=== PATIENT | female | born 1975 ===

== ENCOUNTER 2020-12-14 09:04 | Outpatient (REF) | payer OTHER, SELFPAY ==
[2020-12-14 12:33] LABS: SARS COV2 IgG Negative (Negative)
[2020-12-14 14:19] LABS: Alanine Aminotransferase 13 U/L (0-31); Anion Gap 14 (12-20); Aspartate Amino Transferase 15 U/L (5-31); Blood Urea Nitrogen 18 mg/dL (9-16); Calcium 9.4 mg/dL (8.4-10.2); Carbon Dioxide 24 mmol/L (22-29); Chloride 105 mmol/L (96-108); Cholesterol 234 mg/dL; Estimated Glomerular Filt Rate > 60; Glucose Fasting 95 mg/dL (60-99); HDL Cholesterol 84 mg/dL; LDL Cholesterol Calculated 119 mg/dl; Potassium 4.1 mmol/L (3.3-5.1); Sodium 139 mmol/L (135-145); Triglycerides 156 mg/dL
[2020-12-14 14:45] LABS: Free T4 (Free Thyroxine) 0.95 ng/dL (0.71-1.85); Thyroid Stimulating Hormone 4.88 uIU/mL (0.32-4.0)
== END 2020-12-14 09:05 | disposition home or self-care (01) ==
LOC: HO.HMGCLDS 09:04
PROVIDERS: PCP Internal Medicine; Visit Provider Internal Medicine
DX: Z20.822 Contact with and (suspected) exposure to COVID-19 (principal); E89.0 Postprocedural hypothyroidism; I10 Essential (primary) hypertension
CPT/HCPCS: 36415; 80048; 80061; 84439; 84443; 84450; 84460; 86769

== ENCOUNTER 2021-10-19 11:06 | Outpatient (REF) | payer OTHER, SELFPAY ==
[2021-10-19 13:45] LABS: MANUAL DIFF FLAG NO
[2021-10-19 13:53] LABS: Basophils Absolute Auto 0.1 X10*3/uL (0.0-0.2); Basophils Percent Auto 0.9 % (0-2); Eosinophils Absolute Auto 0.2 X10*3/uL (0.0-0.4); Eosinophils Percent Auto 3.5 % (0-4); Hematocrit 38.6 % (37.0-47.0); Hemoglobin 12.4 g/dl (12.0-16.0); Imm Gran Abs Auto 0.01 X10*3/uL (0.00-0.03); Imm Gran Pct Auto 0.2 % (0.0-0.4); Lymphocytes Absolute Auto 1.6 X10*3/uL (1.2-4.9); Lymphocytes Percent Auto 30.6 % (20-40); Mean Corpuscular HGB Conc 32.1 g/dl (31.0-35.0); Mean Corpuscular Hemoglobin 28.8 pg (27.0-33.0); Mean Corpuscular Volume 89.8 fL (80.0-98.0); Mean Platelet Volume 10.1 fL (9.4-12.3); Monocytes Absolute Auto 0.5 X10*3/uL (0.1-1.2); Monocytes Percent Auto 8.8 % (2-11); Platelet Count 342 X10*3/uL (160-400); White Blood Count 5.4 X10*3/uL (4.8-10.8)
[2021-10-19 16:00] LABS: Anion Gap 10 (12-20); Blood Urea Nitrogen 14 mg/dL (9-16); Calcium 9.1 mg/dL (8.4-10.2); Carbon Dioxide 26 mmol/L (22-29); Chloride 108 mmol/L (96-108); Estimated Glomerular Filt Rate > 60; Glucose Random 101 mg/dL (60-115); Potassium 4.2 mmol/L (3.3-5.1); Sodium 140 mmol/L (135-145)
== END 2021-10-19 11:07 | disposition home or self-care (01) ==
LOC: HO.HMGCLDS 11:06
PROVIDERS: Internal Medicine; Visit Provider Internal Medicine
DX: R19.7 Diarrhea, unspecified (principal); E89.0 Postprocedural hypothyroidism
CPT/HCPCS: 36415; 80048; 84443; 85025

== ENCOUNTER 2021-10-25 10:02 | Outpatient (REF) | payer OTHER, SELFPAY ==
[2021-10-25 14:39] LABS: Adenovirus F 40/41 Not Detected (Not Detect.); Astrovirus Not Detected (Not Detect.); Campylobacter Not Detected (Not Detect.); Cyclospora cayetanensis Not Detected (Not Detect.); E. coli EAEC Not Detected (Not Detect.); E. coli EPEC Not Detected (Not Detect.); E. coli ETEC Not Detected (Not Detect.); E. coli STEC Not Detected (Not Detect.); Entamoeba histolytica Not Detected (Not Detect.); Giardia lamblia Not Detected (Not Detect.); Norovirus GI/GII Not Detected (Not Detect.); Plesiomonas shigelloides Not Detected (Not Detect.); Rotavirus A Not Detected (Not Detect.); Salmonella Not Detected (Not Detect.); Sapovirus Not Detected (Not Detect.); Shigella sp./EIEC Not Detected (Not Detect.); Vibrio Not Detected (Not Detect.); Vibrio Cholerae Not Detected (Not Detect.); Yersinia enterocolitica Not Detected (Not Detect.)
[2021-10-25 16:00] LABS: Cryptosporidium Detected (Not Detect.)
== END 2021-10-25 10:03 | disposition home or self-care (01) ==
LOC: HO.HMGCLDS 10:02
PROVIDERS: PCP Internal Medicine; Visit Provider Internal Medicine
DX: R19.7 Diarrhea, unspecified (principal)
CPT/HCPCS: 36415; 87507

== ENCOUNTER 2021-11-05 11:29 | Outpatient (REF) | payer OTHER, SELFPAY ==
[2021-11-05 16:54] LABS: Adenovirus F 40/41 Not Detected (Not Detect.); Astrovirus Not Detected (Not Detect.); Campylobacter Not Detected (Not Detect.); Cryptosporidium Not Detected (Not Detect.); Cyclospora cayetanensis Not Detected (Not Detect.); E. coli EAEC Not Detected (Not Detect.); E. coli EPEC Detected (Not Detect.); E. coli ETEC Not Detected (Not Detect.); E. coli STEC Not Detected (Not Detect.); Entamoeba histolytica Not Detected (Not Detect.); Giardia lamblia Not Detected (Not Detect.); Norovirus GI/GII Not Detected (Not Detect.); Plesiomonas shigelloides Not Detected (Not Detect.); Rotavirus A Not Detected (Not Detect.); Shigella sp./EIEC Not Detected (Not Detect.); Vibrio Not Detected (Not Detect.); Vibrio Cholerae Not Detected (Not Detect.); Yersinia enterocolitica Not Detected (Not Detect.)
[2021-11-06 11:35] LABS: Sapovirus Not Detected (Not Detect.)
[2021-11-06 11:40] LABS: Salmonella Detected (Not Detect.)
== END 2021-11-05 11:30 | disposition home or self-care (01) ==
LOC: HO.HMGCLNP 11:29
PROVIDERS: PCP Internal Medicine; Visit Provider Internal Medicine
DX: R19.7 Diarrhea, unspecified (principal)
CPT/HCPCS: 87507

== ENCOUNTER 2021-11-12 11:35 | Outpatient (REF) | payer OTHER, SELFPAY ==
[2021-11-12 15:39] LABS: Adenovirus F 40/41 Not Detected (Not Detect.); Astrovirus Not Detected (Not Detect.); Campylobacter Not Detected (Not Detect.); Cryptosporidium Not Detected (Not Detect.); Cyclospora cayetanensis Not Detected (Not Detect.); E. coli EAEC Detected (Not Detect.); E. coli EPEC Detected (Not Detect.); E. coli ETEC Not Detected (Not Detect.); E. coli STEC Not Detected (Not Detect.); Entamoeba histolytica Not Detected (Not Detect.); Giardia lamblia Not Detected (Not Detect.); Plesiomonas shigelloides Not Detected (Not Detect.); Shigella sp./EIEC Not Detected (Not Detect.); Vibrio Not Detected (Not Detect.); Vibrio Cholerae Not Detected (Not Detect.); Yersinia enterocolitica Not Detected (Not Detect.)
[2021-11-12 15:40] LABS: Norovirus GI/GII Not Detected (Not Detect.); Rotavirus A Not Detected (Not Detect.); Sapovirus Not Detected (Not Detect.)
[2021-11-12 15:45] LABS: Salmonella Detected (Not Detect.)
== END 2021-11-12 11:36 | disposition home or self-care (01) ==
LOC: HO.LNP 11:35
PROVIDERS: Visit Provider Internal Medicine
DX: A49.8 Other bacterial infections of unspecified site (principal)
CPT/HCPCS: 87507

== ENCOUNTER 2021-11-19 14:04 | Outpatient (REF) | payer OTHER, SELFPAY ==
[2021-11-22 09:58] LABS: Campylobacter Not Detected (Not Detect.); Plesiomonas shigelloides Not Detected (Not Detect.)
[2021-11-22 09:59] LABS: Adenovirus F 40/41 Not Detected (Not Detect.); Astrovirus Not Detected (Not Detect.); Cryptosporidium Not Detected (Not Detect.); Cyclospora cayetanensis Not Detected (Not Detect.); E. coli EAEC Detected (Not Detect.); E. coli EPEC Not Detected (Not Detect.); E. coli ETEC Not Detected (Not Detect.); E. coli STEC Not Detected (Not Detect.); Entamoeba histolytica Not Detected (Not Detect.); Giardia lamblia Not Detected (Not Detect.); Norovirus GI/GII Not Detected (Not Detect.); Rotavirus A Not Detected (Not Detect.); Sapovirus Not Detected (Not Detect.); Shigella sp./EIEC Not Detected (Not Detect.); Vibrio Not Detected (Not Detect.); Vibrio Cholerae Not Detected (Not Detect.); Yersinia enterocolitica Not Detected (Not Detect.)
[2021-11-22 12:02] LABS: Salmonella Detected (Not Detect.)
== END 2021-11-19 14:05 | disposition home or self-care (01) ==
LOC: HO.HMGCLDS 14:04
PROVIDERS: PCP Internal Medicine; Visit Provider Internal Medicine
DX: Z87.19 Personal history of other diseases of the digestive system (principal)
CPT/HCPCS: 36415; 87507

== ENCOUNTER 2022-04-26 15:15 | Outpatient (REF) | payer OTHER, SELFPAY ==
--- NOTE | ~2022-04-26 | MM_ITS ---
EXAMINATION: MM SCREENING DIGITAL BREAST TOMOSYNTHESIS, BILATERAL CLINICAL INFORMATION: Screening. Asymptomatic. The lifetime risk of breast cancer based on the Tyrer-Cuzick Model is 14%. COMPARISON: Outside mammography 06/03/2019 (baseline, [facility]). TECHNIQUE: Digital breast tomosynthesis is performed in both the craniocaudal and mediolateral oblique views along with computer-aided detection (CAD). Synthesized 2D images are generated from the tomosynthesis. FINDINGS: The breasts are heterogeneously dense, which may obscure small masses (ACR BI-RADS breast composition Category c). Parenchymal pattern is similar to prior outside exam. There is no significant mass or interval architectural abnormality or abnormal calcifications. The small smooth nodule lower left breast similar to prior MLO view. No developing density. Bilateral axilla and skin contours are unremarkable. MM/MM tomosynthesis screening BI IMPRESSION: No mammographic evidence of malignancy. ASSESSMENT: BI-RADS 2: Benign RECOMMENDATION: Routine annual mammography screening. This patient's information was entered into a reminder system with a target due date for their next mammogram.
== END 2022-04-26 15:16 | disposition home or self-care (01) ==
LOC: HO.MAMMO 15:15
PROVIDERS: PCP Internal Medicine; Visit Provider Internal Medicine
DX: Z12.31 Encounter for screening mammogram for malignant neoplasm of breast (principal)
CPT/HCPCS: 77063; 77067

== ENCOUNTER 2022-05-05 09:26 | Outpatient (REF) | payer OTHER, SELFPAY ==
[2022-05-05 12:26] LABS: Alanine Aminotransferase 16 U/L (0-31); Albumin Level 4.5 g/dL (3.5-5.0); Alkaline Phosphatase 61 U/L (39-117); Anion Gap 13 (12-20); Aspartate Amino Transferase 15 U/L (5-31); Bilirubin Total 0.6 mg/dL (0.0-1.0); Blood Urea Nitrogen 19 mg/dL (9-16); Calcium 9.2 mg/dL (8.4-10.2); Carbon Dioxide 26 mmol/L (22-29); Chloride 107 mmol/L (96-108); Cholesterol 231 mg/dL; Estimated Glomerular Filt Rate > 60; Glucose Fasting 107 mg/dL (60-99); HDL Cholesterol 81 mg/dL; LDL Cholesterol Calculated 138 mg/dl; Sodium 142 mmol/L (135-145); Total Protein 7.5 g/dL (6.5-8.0); Triglycerides 63 mg/dL
[2022-05-05 12:29] LABS: Free T4 (Free Thyroxine) 0.99 ng/dL (0.71-1.85); Thyroid Stimulating Hormone 2.42 uIU/mL (0.32-4.0); Vitamin D 25-OH Total 20.4 ng/mL (>30)
[2022-05-10 07:33] LABS: Antibody to SS-A Antigen <1.0 NEG AI (<1.0 NEG); Antibody to SS-B Antigen <1.0 NEG AI (<1.0 NEG)
== END 2022-05-05 09:27 | disposition home or self-care (01) ==
LOC: HO.HMGCLDS 09:26
PROVIDERS: PCP Internal Medicine; Visit Provider Internal Medicine
DX: Z00.01 Encounter for general adult medical examination with abnormal findings (principal); E89.0 Postprocedural hypothyroidism; F41.8 Other specified anxiety disorders; R68.2 Dry mouth, unspecified; I10 Essential (primary) hypertension
CPT/HCPCS: 36415; 80053; 80061; 82306; 84439; 84443; 86235

== ENCOUNTER 2022-11-17 14:01 | Outpatient (REF) | payer OTHER, SELFPAY ==
[2022-11-18 05:36] LABS: CT PCR NOT DETECTED (Not Detect.); NG PCR NOT DETECTED (Not Detect.)
[2022-11-18 15:43] LABS: BV Int Neg Control Negative (Negative); BV Int Pos Control Positive (Positive)
[2022-11-22 23:08] LABS: HPV mRNA E6/E7 rflx Not Detected (Not Detected)
== END 2022-11-17 14:02 | disposition home or self-care (01) ==
LOC: HO.LNP 14:01
PROVIDERS: PCP Internal Medicine; Visit Provider Advanced Practice Midwife
DX: Z01.419 Encounter for gynecological examination (general) (routine) without abnormal findings (principal); Z72.89 Other problems related to lifestyle
CPT/HCPCS: 0353U; 87480; 87510; 87624; 87660; 88142

== ENCOUNTER 2022-11-17 14:01 | Outpatient (AMB) | payer OTHER, SELFPAY ==
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
[2022-11-17 14:06] VITALS: BP 122/70; BMI 25.7
== END 2022-11-17 14:56 | disposition home or self-care (01) ==
LOC: HO.HWS 14:01
PROVIDERS: PCP Internal Medicine; Visit Provider Advanced Practice Midwife
DX: Z01.419 Encounter for gynecological examination (general) (routine) without abnormal findings (principal); I10 Essential (primary) hypertension; E89.0 Postprocedural hypothyroidism; Z11.3 Encounter for screening for infections with a predominantly sexual mode of transmission; Z30.09 Encounter for other general counseling and advice on contraception
CPT/HCPCS: 99386

== ENCOUNTER 2022-11-18 10:25 | Outpatient (AMB) | payer OTHER, SELFPAY ==
[2022-11-18 10:30] VITALS: BP 112/70; PULSE 74; O2SAT 97; BMI 25.5
--- NOTE | 2022-11-18 10:30 | MHC.OFFWIV ---
Intake Vital Signs 11/18/22 10:30 Height 5 ft 11 in Intake Visit Reasons: ED follow up from 11/05/22 Patient Tobacco Use Status: Never used Tobacco Allergies No Known Allergies Allergy (Verified 11/17/22 14:07) PFS Medical History Depression with anxiety Essential hypertension Foot fracture, left Immunization declined Lesion of finger Postablative hypothyroidism Screening for skin cancer Surgical History History of tonsillectomy Hx of section Family History (Updated 11/17/22 @ 14:09 by ENRIQUE Beasley) Maternal Uncle Mental health disorder Mother Mental health disorder Maternal Aunt Breast cancer Social History Household Members: Children Housing: House Patient Tobacco Use Status: Never used Tobacco e-Cigarette/Vaping Use: Never Used Current occupational status: employed Cognitive needs: No Hearing needs: No Vision needs: Yes Female Reproductive History Menstrual Age of Menarche: 13 Coding Diagnoses
--- NOTE | 2022-11-18 10:31 | MHC.PC.OV ---
Vital Signs 11/18/22 10:30 Height 5 ft 11 in Weight 182 lb 8 oz BMI 25.5 BP 112/70 Blood Pressure Location Rt brachial Position Sitting Pulse 74 Pulse Source Pulse Oximeter Pulse Oximetry (%) 97 Oxygen Delivery Method Room Air Intake Visit Reasons: ED follow up from 11/05/22 Intake Note: Pt is here for a f/u from [facility]. Allergies No Known Allergies Allergy (Verified 11/18/22 11:14) Medication List - Last Reconciled 11/18/22 by Nicki Arroyo MD amlodipine 5 mg PO DAILY levothyroxine 75 mcg PO DAILY 90 days sertraline 100 mg PO DAILY 90 days Tobacco use date assessed: 11/18/22 Dental Screening Dental Screen Date: 11/18/22 Did you have a dental visit in the last 12 months?: Yes Did you have a dental problem in the last 6 months where you did not have access to dental care?: No Was dental information given to patient?: No HPI ED follow up from 11/05/22 HPI Details 6-year-old lady with history of hypothyroidism, history of depression with anxiety, here today for follow-up of her recent ER visit, where she presented with palpitations. Patient states that she has been having these on and off for the last several weeks, but has been occurring more frequently. However this was not accompanied by any shortness of breath, no chest pain, no headache or lightheadedness. Has been having a lot of stress lately at home currently in a custody rico with her daughter. Blood pressure at the ER was 158/86 with a pulse of 75bpm. Labs drawn at the ER showed normal electrolytes thyroid stimulating hormone and CBC, EKG done at the ER also showed normal sinus rhythm with occasional PVCs. At present, she is asymptomatic [facility] Medical History (Updated 11/18/22 @ 11:20 by Nicki Arroyo MD) Depression with anxiety Essential hypertension Foot fracture, left Frequent PVCs Immunization declined Lesion of finger Postablative hypothyroidism Screening for skin cancer Surgical History History of tonsillectomy Hx of section Family History (Updated 11/17/22 @ 14:09 by ENRIQUE Beasley) Maternal Uncle Mental health disorder Mother Mental health disorder Maternal Aunt Breast cancer Social History Household Members: Children Housing: House Patient Tobacco Use Status: Never used Tobacco e-Cigarette/Vaping Use: Never Used Current occupational status: employed Cognitive needs: No Hearing needs: No Vision needs: Yes Female Reproductive History Menstrual Age of Menarche: 13 Questionnaire Thrive Questionnaire Date Thrive assessed: 04/06/22 AUDIT C Alcohol Use Questionnaire (AUDIT-C) 1. How often do you have a drink containing alcohol?: Monthly or less 2. How many drinks containing alcohol do you have on a typical day when you are drinking?: 1 or 2 3. How often do you have six or more drinks on one occasion?: Never Total Score: 1 MAHAD-7 AMB Questionnaire MAHAD-7 Date MAHAD - 7 assessed: 04/06/22 Source: Developed by Drs. Chun Almaraz, Siobhan Lewis, Christopher Ward and colleagues, with an educational gladys from [employer]. Review of Systems Const Denies body aches, Denies fever(s) and Denies headache(s) ENT Denies dysphagia, Denies dizziness, Denies headache(s), Denies nasal congestion and Denies sore throat Card Denies chest pain, Denies lightheadedness and Denies dyspnea Resp Denies chest congestion, Denies cough and Denies dyspnea GI Denies dysphagia and Denies heartburn Musc Reports no additional complaints Skin/Breast Denies pruritus and Denies rash Neuro Denies dizziness and Denies headache(s) Psych Reports no additional complaints and Reports as per HPI Physical exam (Primary Care) Vital Signs: Last Vital Signs Pulse 74 11/18/22 10:30 BP 112/70 11/18/22 10:30 Pulse Ox 97 11/18/22 10:30 Oxygen Delivery Method Room Air 11/18/22 10:30 BMI result Body Mass Index 25.5 Tobacco/Smoking Status: Tobacco use Status Tobacco use date assessed 11/18/22 11/18/22 10:33 Patient Tobacco Use Status Never used Tobacco 11/18/22 10:33 e-Cigarette/Vaping Use Never Used 11/18/22 10:33 Thrive Assessment: Date of Thrive Assessment Date Thrive assessed 04/06/22 11/18/22 10:33 Const General: no acute distress Orientation/consciousness: patient oriented x3 HENMT Head: Yes normal to inspection Mouth: Normal oral and palatal mucosa present and moist mucous membranes Eyes General: appearance normal, both eyes and all related structures Neck Neck: Yes supple Resp Effort & Inspection: normal respiratory effort Auscultation: clear to auscultation bilaterally Cardio Rhythm: regular rhythm Heart sounds: S1 normal heart sound present and S2 normal heart sound present GI Inspection: Yes normal to inspection Palpation (GI): Soft to palpation Percussion: Yes normal to percussion Auscultation: normal bowel sounds Neuro General: patient oriented x3, gait normal, moves all extremities, Normal light touch and pain sensation, no focal motor deficits and CN's II-XI intact bilaterally Gait exam (Neuro): Normal gait present Extrem General: Yes full ROM, Yes no joint enlargement, Yes no clubbing, cyanosis or edema, Yes no calf tenderness and Yes normal gait Psych Appearance: grossly normal and well kempt Mental Status: mental status grossly normal Affect: normal affect Assessment and Plan Assessment & Plan (1) Frequent PVCs: Code(s): I49.3 - Ventricular premature depolarization (2) Depression with anxiety: Code(s): F41.8 - Other specified anxiety disorders Plan: Stable controlled on sertraline 100 mg daily and takes an occasional trazodone at night for sleep Orders: Referrals Cardiology Referral I49.3 - Ventricular premature depolarization Medications: New trazodone 50 mg PO BEDTIME PRN 30 tabs 0RF sleep Coding Level of Care Code Est Pt Level 3 (82087) Diagnoses Frequent PVCs I49.3 Depression with anxiety F41.8
== END 2022-11-18 11:53 | disposition home or self-care (01) ==
PROVIDERS: PCP Internal Medicine; Visit Provider Internal Medicine
DX: I49.3 Ventricular premature depolarization (principal); F41.8 Other specified anxiety disorders
CPT/HCPCS: 99213

== ENCOUNTER 2023-04-07 11:02 | Outpatient (AMB) | payer MEDICAID, SELFPAY ==
[2023-04-07 11:07] VITALS: BP 114/86; PULSE 73; O2SAT 100; BMI 26.4
--- NOTE | 2023-04-07 11:07 | A.OFFPC_ITS ---
Vital Signs 04/07/23 11:07 Height 5 ft 11 in Weight 189 lb 4 oz BMI 26.4 BP 114/86 Blood Pressure Location Rt brachial Position Sitting Pulse 73 Pulse Source Pulse Oximeter Pulse Oximetry (%) 100 Oxygen Delivery Method Room Air Intake Visit Reasons: Physical Intake Note: Pt is here for her Annual PE Is last menstrual period known: Yes Last menstrual period: 03/25/23 Allergies No Known Allergies Allergy (Verified 04/07/23 12:07) Medication List - Last Reconciled 04/07/23 by Nicki Arroyo MD amlodipine 5 mg PO DAILY levothyroxine 75 mcg PO DAILY 90 days progesterone micronized 200 mg PO BEDTIME sertraline 100 mg PO DAILY Tobacco use date assessed: 04/07/23 Dental Screening Dental Screen Date: 04/07/23 Did you have a dental visit in the last 12 months?: No Did you have a dental problem in the last 6 months where you did not have access to dental care?: No Was dental information given to patient?: No HPI Physical HPI Details 47-year-old lady here today for physical exam. She has hypertension currently on amlodipine 5 mg daily, has post ablative hypothyroidism and takes levothyroxine 75 mcg daily. She is currently on sertraline for mixed depression anxiety which has been helping. [facility], [facility] Medical History (Updated 04/16/23 @ 18:06 by Nicki Arroyo MD) Screening for malignant neoplasm of cervix Frequent PVCs Screening for skin cancer Immunization declined Depression with anxiety Foot fracture, left Essential hypertension Postablative hypothyroidism Surgical History Hx of section History of tonsillectomy Family History Maternal Uncle Mental health disorder Mother Mental health disorder Maternal Aunt Breast cancer Social History Household Members: Children Housing: House Patient Tobacco Use Status: Never used Tobacco e-Cigarette/Vaping Use: Never Used Current occupational status: employed Cognitive needs: No Hearing needs: No Vision needs: Yes Female Reproductive History Menstrual Age of Menarche: 13 Date of last menstrual period: 03/25/23 Other: Currently being followed at [facility] for her routine Pap and pelvic exam Questionnaire PHQ-9 Over the last 2 weeks, how often have you been bothered by any of the following problems? 1. Little interest or pleasure in doing things: several days 2. Feeling down, depressed, or hopeless: several days 3. Trouble falling or staying asleep, or sleeping too much: more than half the days 4. Feeling tired or having little energy: more than half the days 5. Poor appetite or overeating: not at all 6. Feeling bad about yourself - or that you are a failure or have let yourself or your family down: not at all 7. Trouble concentrating on things, such as reading the newspaper or watching television: not at all 8. Moving or speaking so slowly that other people could have noticed. Or the opposite - being so fidgety or restless that you have been moving around a lot more than usual: not at all 9. Thoughts that you would be better off or of hurting yourself in some way: not at all Total score: 6 Depression Screening Interpretation: Positive Depression Screening Follow-up: Existing condition, In treatment and Community Mental Health Worker F/U Depression Screening Done: Yes 45390 - PHQ-9 Billing: Yes Source: Developed by Drs. Chun Almaraz, Siobhan Lewis, Christopher Ward and colleagues, with an educational gladys from [employer]. Thrive Questionnaire Date Thrive assessed: 04/06/22 I am a: Patient What is your living situation today?: I have a place to live, but I am worried about losing it in the future Within the past 12 months, did the food you bought not last and you didn't have the money to get more?: Sometimes True Within the past 12 months, did you worry whether your food would run out before you got money to buy more?: Sometimes True Do you have trouble paying for medicines?: No Do you have trouble getting transportation to medical appointments?: No Do you have trouble paying your heating and electricity bill?: Yes Do you have trouble taking care of your child, family member or friend?: No Do you have trouble with day-to-day activities such as bathing, preparing meals, shopping, managing finances, etc.?: No Are you currently unemployed and looking for a job?: No Are you interested in more education?: No Please select the resources that you would like help with: Food AUDIT C Alcohol Use Questionnaire (AUDIT-C) 1. How often do you have a drink containing alcohol?: 2-4 times a month 2. How many drinks containing alcohol do you have on a typical day when you are drinking?: 1 or 2 3. How often do you have six or more drinks on one occasion?: Never Total Score: 2 MAHAD-7 AMB Questionnaire MAHAD-7 Date MAHAD - 7 assessed: 04/07/23 Feeling nervous, anxious, or on edge: 2 = More than half the days Not being able to stop or control worryin = Several days Worrying too much about different things: 1 = Several days Trouble relaxin = Several days Being so restless that it is hard to sit still: 0 = Not at all Becoming easily annoyed or irritable: 2 = More than half the days Feeling afraid as if something awful might happen: 0 = Not at all Total MAHAD-7 score (0-4 normal; 5-9 mild; 10-14 moderate; 15-21 severe): 7 Source: Developed by Drs. Chun Almaraz, Siobhan Lewis, Christopher Ward and colleagues, with an educational gladys from [employer]. MAHAD-7 Assessment Billing MAHAD-7 Assessment Tool: MAHAD-7 Assessment 72835 Review of Systems Const Denies body aches, Denies fever(s) and Denies headache(s) Eyes Reports no additional complaints ENT Denies dysphagia, Denies dizziness, Denies headache(s), Denies nasal congestion and Denies sore throat Card Denies chest pain, Denies lightheadedness and Denies dyspnea Resp Denies chest congestion, Denies cough and Denies dyspnea GI Denies dysphagia and Denies heartburn Reports no additional complaints Musc Reports no additional complaints Skin/Breast Denies pruritus and Denies rash Neuro Denies dizziness and Denies headache(s) Psych Reports no additional complaints and Reports as per HPI Endo Reports no additional complaints Cody/Lymph Reports no additional complaints Aller/Immun Reports no additional complaints Physical exam (Primary Care) Vital Signs: Last Vital Signs Pulse 73 04/07/23 11:07 BP 114/86 04/07/23 11:07 Pulse Ox 100 04/07/23 11:07 Oxygen Delivery Method Room Air 04/07/23 11:07 BMI result Body Mass Index 26.4 Tobacco/Smoking Status: Tobacco use Status Tobacco use date assessed 04/07/23 04/07/23 11:13 Patient Tobacco Use Status Never used Tobacco 04/07/23 11:13 e-Cigarette/Vaping Use Never Used 04/07/23 11:13 PHQ-9: PHQ-9 Score PHQ-9: Total score 6 04/17/23 11:02 Depression Screening Interpretation: Positive Depression Screening Follow-up: E xisting condition, In treatment and Community Mental Health Worker F/U Thrive Assessment: Date of Thrive Assessment Date Thrive assessed 04/06/22 04/07/23 11:13 Const General: no acute distress Orientation/consciousness: patient oriented x3 HENMT Head: Yes normal to inspection Mouth: Normal oral and palatal mucosa present and moist mucous membranes Eyes General: appearance normal, both eyes and all related structures Neck Neck: Yes supple Chest Breast/axilla palpation: normal palpation of the breasts Resp Effort & Inspection: normal respiratory effort Auscultation: clear to auscultation bilaterally Cardio Rhythm: regular rhythm Heart sounds: S1 normal heart sound present and S2 normal heart sound present GI Inspection: Yes normal to inspection Palpation (GI): Soft to palpation Percussion: Yes normal to percussion Auscultation: normal bowel sounds General: Yes no CVA tenderness and Yes deferred (Up-to-date with Pap and pelvic exam, done by [facility]) Back/Spine/Pelvis Back: no CVA tenderness and No back tenderness Skin General skin exam: no rashes or lesions noted Neuro General: patient oriented x3, gait normal, moves all extremities, Normal light touch and pain sensation, no focal motor deficits and CN's II-XI intact bi laterally Gait exam (Neuro): Normal gait present Extrem General: Yes full ROM, Yes no joint enlargement, Yes no clubbing, cyanosis or edema, Yes no calf tenderness and Yes normal gait Psych Appearance: grossly normal and well kempt Mental Status: mental status grossly normal Affect: normal affect Assessment and Plan Assessment & Plan (1) Annual visit for general adult medical examination with abnormal findings: Code(s): Z00.01 - Encounter for general adult medical examination with abnormal findings Plan: Fasting labs have been ordered, reminded patient to get it done. Recommended dental visit every 6 months and regular eye exams, at least every 2 years. Take adequate calcium in diet and vitamin-D 3 at 2000 IU per cap once a day, in addition to weight-bearing exercises to help maintain good muscle tone and weight control. Instructed to do self-breast exam, and continue with yearly mammogram, , sees [facility] for her routine Pap and pelvic exam and for control prescription and counseling. Routine vaccines declined by patient. Referred to GI for her initial screening colonoscopy (2) Essential hypertension: Code(s): I10 - Essential (primary) hypertension Plan: Blood pressure stable controlled on a lot open, will continue on current dose. Reinforced importance of following a low sodium diet, getting regular exercise, and lowering stress levels. (3) Postablative hypothyroidism: Code(s): E89.0 - Postprocedural hypothyroidism Plan: Will check TSH with free T4, continue on current dose of levothyroxine 75 mcg daily 1 day in the morning an hour before breakfast (4) Immunization declined: Code(s): Z28.21 - Immunization not carried out because of patient refusal Plan: Patient does not want to get any vaccinations (5) Depression with anxiety: Code(s): F41.8 - Other specified anxiety disorders Plan: Continue with sertraline 100 mg once daily, followed by therapist (6) Colon cancer screening: Code(s): Z12.11 - Encounter for screening for malignant neoplasm of colon Plan: Referred to GI for her screening colonoscopy Orders: Referrals Gastroenterology Referral Z12.11 - Encounter for screening for malignant neoplasm of colon, Z00.01 - Encounter for general adult medical examination with abnormal findings, I10 - Essential (primary) hypertension, E89.0 - Postprocedural hypothyroidism, Z28.21 - Immunization not carried out because of patient refusal, F41.8 - Other specified anxiety disorders Review Flu Vaccine not done: patient reason Coding Level of Care Code Est Pt Prev Care 40-64y(13020) Diagnoses Annual visit for general adult medical examination with abnormal findings Z00.01 Essential hypertension I10 Postablative hypothyroidism E89.0 Immunization declined Z28.21 Depression with anxiety F41.8 Colon cancer screening Z12.11 Additional Codes MAHAD-7 Assessment Billing - MAHAD-7 Assessment Tool: MAHAD-7 Assessment [id number] ([id number])
== END 2023-04-07 12:44 | disposition home or self-care (01) ==
LOC: HO.HMGC 11:02
PROVIDERS: PCP Internal Medicine; Visit Provider Internal Medicine
DX: Z00.00 Encounter for general adult medical examination without abnormal findings (principal); I10 Essential (primary) hypertension; E89.0 Postprocedural hypothyroidism; Z28.21 Immunization not carried out because of patient refusal; F41.8 Other specified anxiety disorders; Z12.11 Encounter for screening for malignant neoplasm of colon; E03.9 Hypothyroidism, unspecified
CPT/HCPCS: 96127; 99396

== ENCOUNTER 2023-05-12 13:54 | Outpatient (REF) | payer OTHER, SELFPAY | END 2023-05-12 13:55 | disposition home or self-care (01) | LOC: HO.MAMMO 13:54 | PROVIDERS: PCP Internal Medicine; Visit Provider Internal Medicine | DX: Z12.31 Encounter for screening mammogram for malignant neoplasm of breast (principal) | CPT/HCPCS: 77063; 77067 ==

== ENCOUNTER → 2023-05-12 14:00 | Outpatient (BNV) | payer OTHER, SELFPAY | PROVIDERS: PCP Internal Medicine; Visit Provider Radiology Diagnostic Radiology | DX: Z12.31 Encounter for screening mammogram for malignant neoplasm of breast (principal) | CPT/HCPCS: 77063; 77067 ==

== ENCOUNTER 2024-01-09 09:57 | Outpatient (AMB) | payer OTHER, SELFPAY ==
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
[2024-01-09 10:03] VITALS: BP 130/90; PULSE 77; O2SAT 99; BMI 26.2
== END 2024-01-09 10:39 | disposition home or self-care (01) ==
PROVIDERS: PCP Internal Medicine; Visit Provider Physician Assistant
DX: M54.50 Low back pain, unspecified (principal); G89.29 Other chronic pain; M54.2 Cervicalgia

== ENCOUNTER → 2024-01-09 09:57 | Outpatient (BNVA) | payer OTHER, SELFPAY | PROVIDERS: PCP Internal Medicine; Visit Provider Physician Assistant ==

== ENCOUNTER 2024-01-09 10:26 | Outpatient (REF) | payer OTHER, SELFPAY ==
--- NOTE | ~2024-01-09 | XR_ITS ---
EXAMINATION: XR THORACIC SPINE CLINICAL INFORMATION: Back pain. COMPARISON: None available. TECHNIQUE: 3 views of the thoracic spine were obtained. FINDINGS: No fracture or bone destruction is seen, and the vertebral alignment appears normal. No disc space narrowing is seen. No abnormality of the paraspinal soft tissues is appreciated. XR/XR thoracic spine 3V IMPRESSION: Unremarkable examination. Electronically signed by: Barry Romano MD 01/09/2024 12:52 PM EDT
--- NOTE | ~2024-01-09 | XR_ITS ---
EXAMINATION: XR LUMBAR SPINE CLINICAL INFORMATION: Lumbar pain. COMPARISON: None available. TECHNIQUE: Frontal, lateral, coned-down, and bilateral oblique views of the lumbar spine. FINDINGS: Very mild disc space narrowing at L4-L5. Disc heights otherwise appear maintained. The vertebral heights and alignment appear unremarkable. No intrinsic bony abnormality appreciated. The endplates and posterior elements appear normal. No fracture or subluxation identified. The surrounding prevertebral soft tissues appear unremarkable. XR/XR lumbar spine 4V min IMPRESSION: Very mild disc space narrowing at L4-L5. Electronically signed by: Barry Romano MD 01/09/2024 12:58 PM EDT
--- NOTE | ~2024-01-09 | XR_ITS ---
EXAMINATION: XR CERVICAL SPINE CLINICAL INFORMATION: Neck pain. COMPARISON: None available. TECHNIQUE: Frontal, lateral, and bilateral oblique views of the cervical spine. FINDINGS: The vertebral alignment appears normal. No intrinsic bony abnormality appreciated. The disc heights and neural foramina appear well maintained. The endplates and posterior elements appear normal. No fracture or subluxation identified. The surrounding prevertebral soft tissues appear unremarkable. XR/XR cervical spine 4V IMPRESSION: Normal plain film examination of the cervical spine. Electronically signed by: Barry Romano MD 01/09/2024 12:55 PM EDT
== END 2024-01-09 10:27 | disposition home or self-care (01) ==
LOC: HO.HMGCX 10:26
PROVIDERS: PCP Internal Medicine; Visit Provider Physician Assistant
DX: M54.50 Low back pain, unspecified (principal); G89.29 Other chronic pain; M54.2 Cervicalgia; M54.9 Dorsalgia, unspecified
CPT/HCPCS: 72050; 72072; 72110; 99212

== ENCOUNTER 2024-01-22 12:10 | Outpatient (AMB) | payer OTHER, SELFPAY ==
[2024-01-22 12:33] VITALS: BP 120/80; PULSE 80; O2SAT 98; BMI 26.5
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
== END 2024-01-22 14:53 | disposition home or self-care (01) ==
LOC: HO.HMCC 12:11
PROVIDERS: PCP Internal Medicine; Visit Provider Internal Medicine
DX: M54.50 Low back pain, unspecified (principal)

== ENCOUNTER → 2024-01-22 12:10 | Outpatient (BNVA) | payer OTHER, SELFPAY | PROVIDERS: PCP Internal Medicine; Visit Provider Internal Medicine | DX: M54.50 Low back pain, unspecified (principal) | CPT/HCPCS: 96127; 99212 ==

== ENCOUNTER 2024-04-16 15:06 | Outpatient (AMB) | payer OTHER, SELFPAY ==
[2024-04-16 15:08] VITALS: BP 118/80; PULSE 85; O2SAT 98; BMI 25.8
--- NOTE | 2024-04-16 15:08 | AM.OFFWIN_ITS ---
Intake Vital Signs 04/16/24 15:08 Height 5 ft 11 in Weight 185 lb BMI 25.8 BP 118/80 Blood Pressure Location Lt brachial Position Sitting Pulse 85 Pulse Source Pulse Oximeter Pulse Oximetry (%) 98 Oxygen Delivery Method Room Air Intake Visit Reasons: EP Pain & swollen LT ankle Intake Note: Pt presents to the office today for c/o left ankle swelling and pain since yesterday when she fell and twisted her ankle in the snow. Patient Tobacco Use Status: Never used Tobacco Allergies No Known Allergies Allergy (Verified 04/16/24 15:14) HPI HPI Comments History of Present Illness Details This is a 48-year-old female with a past medical history of anxiety, hypothyroidism s/p thyroid ablation and hypertension presenting for evaluation of left ankle pain. Patient states that she went outside yesterday in the snow and twisted her left ankle. Patient is complaining of left lateral ankle pain that she is able to ambulate on. Patient used ice and Aleve yesterday evening. Patient is denying any pain in her left foot. [facility] Medical History Screening for malignant neoplasm of cervix Frequent PVCs Screening for skin cancer Immunization declined Depression with anxiety Foot fracture, left Essential hypertension Postablative hypothyroidism Surgical History Hx of section History of tonsillectomy Family History Maternal Uncle Mental health disorder Mother Mental health disorder Maternal Aunt Breast cancer Social History Household Members: Children Housing: House Patient Tobacco Use Status: Never used Tobacco e-Cigarette/Vaping Use: Never Used Current occupational status: employed Cognitive needs: No Hearing needs: No Vision needs: Yes Female Reproductive History Menstrual Age of Menarche: 13 Physical Exam Vital Signs: Last Vital Signs Pulse 85 04/16/24 15:08 BP 118/80 04/16/24 15:08 Pulse Ox 98 04/16/24 15:08 Oxygen Delivery Method Room Air 04/16/24 15:08 BMI result Body Mass Index 25.8 Const General: cooperative, healthy appearing, comfortable, no acute distress, well developed, alert, awake and Physically active Nutritional Appearance: average body habitus Orientation/consciousness: patient oriented x3 Limitations: no limitations Skin Other: no ecchymosis left ankle or left foot Neuro General: patient oriented x3 Extrem Left lower extremity: normal capillary refill (Left foot) and ankle Details: abnormal to inspection, tenderness, swelling Details: laterally, no edema and other (Pain to palpation left lateral malleolus and left distal fibula); no warmth; abnormal to inspection (edema overlying the left lateral malleolus with tenderness to touch) and abnormal ROM (Decreased ROM left ankle secondary to pain and edema) Psych Appearance: grossly normal Mental Status: mental status grossly normal Insight: Good insight present (Psych) Judgement: Good judgement present (Psych) Results Reviewed Results Reviewed: No overt fracture noted on imaging Assessment & Plan Assessment & Plan (1) Left ankle sprain: Comment: No acute fracture noted on imaging. Patient will be provided with an Aircast for stabilization immobilization. Code(s): S93.402A - Sprain of unspecified ligament of left ankle, initial encounter Qualifiers: Encounter type: initial encounter Involved ligament of ankle: unspecified ligament Qualified Code(s): S93.402A - Sprain of unspecified ligament of left ankle, initial encounter Plan: Aircast to wear to the left ankle, Aleve OTC b.i.d. (patient declines stronger medication at this time), ice this evening at 20 minute intervals. Orders: Orders XR ankle LT min 3V Today M25.572 - Pain in left ankle and joints of left foot Coding Level of Care Code Est Pt Level 3 (65861) Diagnoses Sprain of left ankle, unspecified ligament, initial encounter S93.402A Encounter type: initial encounter Involved ligament of ankle: unspecified ligament Time Spent (min) 30
== END 2024-04-16 15:56 | disposition home or self-care (01) ==
PROVIDERS: PCP Internal Medicine; Visit Provider Physician Assistant
DX: S93.402A Sprain of unspecified ligament of left ankle, initial encounter (principal)

== ENCOUNTER 2024-04-16 15:06 | Outpatient (REF) | payer OTHER, SELFPAY ==
--- NOTE | ~2024-04-16 | XR_ITS ---
EXAMINATION: XR ANKLE 3 OR MORE VIEWS LEFT HISTORY: M25.572 - Pain in left ankle and joints of left foot COMPARISON: There are no prior studies available for comparison. FINDINGS: Three views of the left ankle are submitted. Osseous mineralization is normal. There is no fracture or dislocation. The joint spaces are preserved. The soft tissues are unremarkable. XR/XR ankle LT min 3V IMPRESSION: Unremarkable examination of the left ankle. Electronically signed by: Chun García MD 04/16/2024 03:38 PM EST
== END 2024-04-16 15:07 | disposition home or self-care (01) ==
LOC: HO.HMGCX 15:06
PROVIDERS: PCP Internal Medicine; Visit Provider Physician Assistant
DX: S93.402A Sprain of unspecified ligament of left ankle, initial encounter (principal); X50.1XXA Overexertion from prolonged static or awkward postures, initial encounter; Y93.9 Activity, unspecified; Y92.9 Unspecified place or not applicable; Y99.9 Unspecified external cause status
CPT/HCPCS: 73610; 99212

== ENCOUNTER → 2024-04-16 15:25 | Outpatient (BNV) | payer OTHER, SELFPAY | PROVIDERS: PCP Internal Medicine; Visit Provider Radiology Diagnostic Radiology | DX: M25.572 Pain in left ankle and joints of left foot (principal) | CPT/HCPCS: 73610 ==

== ENCOUNTER 2024-04-24 08:27 | Outpatient (AMB) | payer OTHER, SELFPAY ==
[2024-04-24 08:30] VITALS: BP 122/80; PULSE 80; RESP 18; TEMP 36.7; O2SAT 98; BMI 25.9
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
== END 2024-04-24 09:34 | disposition home or self-care (01) ==
PROVIDERS: PCP Internal Medicine; Visit Provider Internal Medicine
DX: Z00.01 Encounter for general adult medical examination with abnormal findings (principal); E89.0 Postprocedural hypothyroidism; I10 Essential (primary) hypertension; F41.8 Other specified anxiety disorders; Z28.21 Immunization not carried out because of patient refusal; S93.402A Sprain of unspecified ligament of left ankle, initial encounter; Z71.89 Other specified counseling; Z12.11 Encounter for screening for malignant neoplasm of colon

== ENCOUNTER → 2024-04-24 08:27 | Outpatient (BNVA) | payer OTHER, SELFPAY | PROVIDERS: PCP Internal Medicine; Visit Provider Internal Medicine | DX: Z00.01 Encounter for general adult medical examination with abnormal findings (principal); I10 Essential (primary) hypertension; E89.0 Postprocedural hypothyroidism; F41.8 Other specified anxiety disorders; S93.402A Sprain of unspecified ligament of left ankle, initial encounter; X58.XXXA Exposure to other specified factors, initial encounter; Y93.9 Activity, unspecified; Y92.9 Unspecified place or not applicable; Y99.9 Unspecified external cause status; Z71.89 Other specified counseling; Z28.21 Immunization not carried out because of patient refusal | CPT/HCPCS: 96127; 99396 ==

== ENCOUNTER 2024-06-18 07:47 | Outpatient (REF) | payer OTHER, SELFPAY ==
[2024-06-18 11:13] LABS: Alanine Aminotransferase 40 U/L (0-31); Anion Gap 10 (12-20); Aspartate Amino Transferase 34 U/L (5-31); Blood Urea Nitrogen 19 mg/dL (9-16); Calcium 9.2 mg/dL (8.4-10.2); Carbon Dioxide 28 mmol/L (22-29); Chloride 108 mmol/L (96-108); Cholesterol 221 mg/dL (<200); Estimated Glomerular Filt Rate > 60; Glucose Fasting 105 mg/dL (60-99); HDL Cholesterol 84 mg/dL (>40); LDL Cholesterol Calculated 126 mg/dL (<100); Potassium 4.1 mmol/L (3.3-5.1); Sodium 142 mmol/L (135-145); Triglycerides 56 mg/dL (<150)
[2024-06-18 11:32] LABS: Free T4 (Free Thyroxine) 0.93 ng/dL (0.71-1.85); Thyroid Stimulating Hormone 4.13 uIU/mL (0.32-4.0)
[2024-06-18 12:14] LABS: Folate 7.4 ng/mL (> or = 4.0); Vitamin B12 384 pg/mL (200-900)
== END 2024-06-18 07:48 | disposition home or self-care (01) ==
LOC: HO.HMGCLDS 07:47
PROVIDERS: PCP Internal Medicine; Visit Provider Internal Medicine
DX: S93.402A Sprain of unspecified ligament of left ankle, initial encounter (principal); X58.XXXA Exposure to other specified factors, initial encounter; Y93.9 Activity, unspecified; Y92.9 Unspecified place or not applicable; Y99.9 Unspecified external cause status; I10 Essential (primary) hypertension; E89.0 Postprocedural hypothyroidism; F41.8 Other specified anxiety disorders; Z28.21 Immunization not carried out because of patient refusal
CPT/HCPCS: 36415; 80048; 80061; 82306; 82607; 82746; 84439; 84443; 84450; 84460

== ENCOUNTER 2024-06-25 14:35 | Outpatient (REF) | payer OTHER, SELFPAY ==
--- OUTSIDE RECORDS SUMMARY | 2024-06-25 17:26 | XMS_ITS | Encounter Summary ---
Author Organization [facility] Address [address] [place] [address] Care Team Providers Care Potato Inspector Name Role Phone Nicolette Fan DO Primary Care Pro vider Unavailable Community, Pcp Primary Care Provider Unavailabl e Reason for Visit * Reason Onset Date Comments refill request 01/28/2020 Encounter Details Date Type Department Care Team Description 01/28/2020 Refill Adult Medicine [address] [id number] Nicolette Fan DO refill request Social History Tobacco Use Types Packs/Day Years Used Date Smoking Tobacco: Never Smokeless Tobacco: Never Alcohol Use Standard Drinks/Week Comments Yes 0 (1 standard drink = 0.6 oz pur e alcohol) social Sex Assigned at Date Recorded Not on file COVID-19 Exposure Response Date Recorded In the last month, have you been in contact with someone who was confirmed or suspected to have Coronavirus / COVID-19? No / Unsure 01/08/2020 5:58 PM EDT documented as of this encounter Miscellaneous Notes * Telephone Encounter - Shakira Hunt M.A. - 01/28/2020 11:09 AM EST Lab Results Component Value Date ALB 3.9 05/29/2019 SGOT 10 05/29/2019 SGPT 21 05/29/2019 TBILI 0.4 05/29/2019 ALKPHOS 49 05/29/2019 TP 7.9 05/29/2019 * Telephone Encounter - Nydia Eladia - 01/28/2020 11:06 AM EST Patient would like script to be: E-PRESCRIBED/FAXED TO PHARMACY WHEN WAS THE PATIENT'S LAST APPOINTMENT IN ADULT MEDICINE? 11/07/19 WHEN WAS THE LAST TIME THE PATIENT SAW THEIR PCP? 10/14/19 Does patient have an upcoming appointment? Pharmacy call (THE MEDICATION REQUESTED IS ON THE MED LIST ABOVE) All of the medications requested were on the CURRENT MEDS list Did you check the Pharmacy information above?: YES Patient wants: 90 -day supply Is this a mail order prescription request ? NO If the refill is from a FAXED refill request what is the RX # listed on the fax? N/A Patients current [facility] carrier is[facility] / Plan: CCARCELIA WYNNE TYPE 2 / Product Type: HMO [id number] documented in this encounter Plan of Treatment Not on file documented as of this encounter Visit Diagnoses Not on filedocumented in this encounter Care Teams Potato Inspector Relationship Specialty Start Date End Date Nicolette Fan DO PCP - General Internal Medicine 05/29/19 12/07/20 [facility], Pcp PCP - General Internal Medicine 12/08/20 documented as of this encounter
--- OUTSIDE RECORDS SUMMARY | 2024-06-25 17:26 | XMS_ITS | Encounter Summary ---
Author Organization [facility] Address [address] [place] [address] Care Team Providers Care Research Advisor Name Role Phone Nicki Lovelace MD Primary Care Provider Unavailable Nicolette Fan DO Primary Care Pro vider Unavailable Community, Pcp Primary Care Provider Unavailabl e Encounter Details Date Type Department Care Team Description 07/14/2016 SCAN Medical Records [address] [place] [address] Abstract, Provider Social History Tobacco Use Types Packs/Day Years Used Date Smoking Tobacco: Never Smokeless Tobacco: Never Alcohol Use Standard Drinks/Week Comments Yes 0 (1 standard drink = 0.6 oz pur e alcohol) social Sex Assigned at Date Recorded Not on file documented as of this encounter Plan of Treatment Not on file documented as of this encounter Procedures Procedure Name Priority Date/Time Associated Diagnosis Comments OUTSIDE LAB Routine 06/22/2016 documented in this encounter Results * OUTSIDE LAB (06/22/2016) Provider Abstract LAB documented in this encounter Visit Diagnoses Not on filedocumented in this encounter Care Teams Research Advisor Relationship Specialty Start Date End Date Nicki Lovelace MD PCP - General 01/01/1998 Nicolette Fan DO PCP - General Internal Medicine 05/29/19 12/07/20 Community, Pcp PCP - General Internal Medicine 12/08/20 documented as of this encounter
--- OUTSIDE RECORDS SUMMARY | 2024-06-25 17:26 | XMS_ITS | Encounter Summary ---
Author Organization [facility] Address [address] [place] [address] Care Team Providers Care Body Care Manager Name Role Phone Nicki Lovelace MD Primary Care Provider Unavailable Nicolette Fan DO Primary Care Pro vider Unavailable Community, Pcp Primary Care Provider Unavailabl e Encounter Details Date Type Department Care Team Description 06/12/2013 Clinical Professor Report Medical Records [address] [place] [id number] Cosmo Mott Social History Tobacco Use Types Packs/Day Years [...] on filedocumented in this encounter Care Teams Body Care Manager Relationship Specialty Start Date End Date Nicki Lovelace MD PCP - General 01/01/1998 Nicolette Fan DO PCP - General Internal Medicine 05/29/19 12/07/20 [facility], Pcp PCP - General Internal Medicine 12/08/20 documented as of this encounter
--- OUTSIDE RECORDS SUMMARY | 2024-06-25 17:26 | XMS_ITS | Encounter Summary ---
Author Organization [facility] Address [address] [place] [address] Care Team Providers Care French Polisher Name Role Phone Nicki Lovelace MD Primary Care Provider Unavailable Nicolette Fan DO Primary Care Pro vider Unavailable Community, Pcp Primary Care Provider Unavailabl e Encounter Details Date Type Department Care Team Description 10/31/2011 Engineering Tech Report Medical Records [address] [place] [id number] Cosmo Mott Social History Tobacco Use Types [...] on filedocumented in this encounter Care Teams French Polisher Relationship Specialty Start Date End Date Nicki Lovelace MD PCP - General 01/01/1998 Nicolette Fan DO PCP - General Internal Medicine 05/29/19 12/07/20 [facility], Pcp PCP - General Internal Medicine 12/08/20 documented as of this encounter
--- OUTSIDE RECORDS SUMMARY | 2024-06-25 17:26 | XMS_ITS | Encounter Summary ---
Author Organization [facility] Address [address] [place] [address] Care Team Providers Care Asphalt Plant Laborer Name Role Phone Nicki Lovelace MD Primary Care Provider Unavailable Nicolette Fan DO Primary Care Pro vider Unavailable Community, Pcp Primary Care Provider Unavailabl e Encounter Details Date Type Department Care Team Description 06/23/2016 Chairman And Chief Executive Officer Report Medical Records [address] [place] [id number] Cosmo Mott Social History Tobacco Use Types [...] on filedocumented in this encounter Care Teams Asphalt Plant Laborer Relationship Specialty Start Date End Date Nicki Lovelace MD PCP - General 01/01/1998 Nicolette Fan DO PCP - General Internal Medicine 05/29/19 12/07/20 Community, Pcp PCP - General Internal Medicine 12/08/20 documented as of this encounter
--- OUTSIDE RECORDS SUMMARY | 2024-06-25 17:26 | XMS_ITS | Encounter Summary ---
Author Organization [facility] Address [address] [place] [address] Care Team Providers Care Green Feed Attendant Name Role Phone Nicolette Fan DO Primary Care Pro vider Unavailable Community, Pcp Primary Care Provider Unavailabl e Encounter Details Date Type Department Care Team Description 03/31/2020 [place] [address] Maria Teresa Guzman PA-C Social History Tobacco Use Types Packs/Day Years Used Date Smoking Tobacco: Never Smokeless Tobacco: Never Alcohol Use Standard Drinks/Week Comments Yes 0 (1 standard drink = 0.6 oz pur e alcohol) social Sex Assigned at Date Recorded Not on file documented as of this encounter Miscellaneous Notes * Telephone Encounter - Maria Teresa Guzman PA-C - 03/31/2020 4:06 PM EST Please call the patient. She was supposed to have a telehealth visit this morning and no one calledher per the patient. She was then rescheduled for next Monday by mistake. She was then given a telehealth visit with me this afternoon at 345. Unfortunately this never should have been booked as telehealth becaue I cannot see inside her ear which is her complaint. Suggested she go to an urgent care and sheclaims the one near her does not take her insurance. Then stated she would drive to the ER instead. This is not an emergency and does not warrant ER treatment, again recommended urgent care since she would be driving anyway. She then hung up on me. She is not happy. Thank you Maria Teresa Guzman PA-C documented in this encounter Plan of Treatment Not on file documented as of this encounter Visit Diagnoses Not on filedocumented in this encounter Care Teams Green Feed Attendant Relationship Specialty Start Date End Date Nicolette Fan DO PCP - General Internal Medicine 05/29/19 12/07/20 [facility], Pcp PCP - General Internal Medicine 12/08/20 documented as of this encounter
--- OUTSIDE RECORDS SUMMARY | 2024-06-25 17:26 | XMS_ITS | Encounter Summary ---
Author Organization [facility] Address [address] [place] [address] Care Team Providers Care Room Service Attendant Name Role Phone Nicki Lovelace MD Primary Care Provider Unavailable Nicolette Fan DO Primary Care Pro vider Unavailable Community, Pcp Primary Care Provider Unavailabl e Encounter Details Date Type Department Care Team Description 02/24/2011 Junior Programmer Analyst Report Medical Records [address] [place] [address] Cosmo Mott Social History Tobacco Use Types [...] on filedocumented in this encounter Care Teams Room Service Attendant Relationship Specialty Start Date End Date Nicki Lovelace MD PCP - General 01/01/1998 Nicolette Fan DO PCP - General Internal Medicine 05/29/19 12/07/20 [facility], Pcp PCP - General Internal Medicine 12/08/20 documented as of this encounter
--- OUTSIDE RECORDS SUMMARY | 2024-06-25 17:26 | XMS_ITS | Encounter Summary ---
Author Organization [facility] Address [address] [place] [address] Care Team Providers Care Corporate Scheduler Name Role Phone Nicolette Fan DO Primary Care Pro vider Unavailable Community, Pcp Primary Care Provider Unavailabl e Reason for Visit * Reason Comments E-prescribe Rx Request Encounter Details Date Type Department Care Team Description 10/20/2020 Refill Adult Medicine [address] [address] Nicolette Fan DO E-prescribe Rx Request Social History Tobacco Use Types Packs/Day Years Used Date Smoking Tobacco: Never Smokeless Tobacco: Never Alcohol Use Standard Drinks/Week Comments Yes 0 (1 standard drink = 0.6 oz pur e alcohol) social Sex Assigned at Date Recorded Not on file documented as of this encounter Miscellaneous Notes * Telephone Encounter - Shakira Hunt M.A. - 10/26/2020 4:07 PM EDT Last office visit 03/31/20 Pt needs to choose new PCP and schedule a visit Lab Results Component Value Date ALB 3.9 05/29/2019 SGOT 10 05/29/2019 SGPT 21 05/29/2019 TBILI 0.4 05/29/2019 ALKPHOS 49 05/29/2019 TP 7.9 05/29/2019 Lab Results Component Value Date TSH 4.34 11/06/2019 * Telephone Encounter - Aleida Angulo - 10/26/2020 4:05 PM EDT L/M for pt update pcp and make future appt documented in this encounter Plan of Treatment Not on file documented as of this encounter Visit Diagnoses Not on filedocumented in this encounter Care Teams Corporate Scheduler Relationship Specialty Start Date End Date Nicolette Fan DO PCP - General Internal Medicine 05/29/19 12/07/20 [facility], Pcp PCP - General Internal Medicine 12/08/20 documented as of this encounter
--- OUTSIDE RECORDS SUMMARY | 2024-06-25 17:26 | XMS_ITS | Encounter Summary ---
Author Organization [facility] Address [address] [place] [address] Care Team Providers Care Rewind Operator Name Role Phone Nicolette Fan DO Primary Care Pro vider Unavailable [facility], Pcp Primary Care Provider Unavailabl e Reason for Visit * Reason Comments E-prescribe Rx Request Encounter Details Date Type Department Care Team Description 07/31/2019 Refill Adult Medicine [address] [address] Nicolette Fan DO E-prescribe Rx Request Social History Tobacco Use Types Packs/Day Years Used Date Smoking Tobacco: Never Smokeless Tobacco: Never Alcohol Use Standard Drinks/Week Comments Yes 0 (1 standard drink = 0.6 oz pur e alcohol) social Sex Assigned at Date Recorded Not on file documented as of this encounter Miscellaneous Notes * Telephone Encounter - Nicolette Kimbrough DO - 08/01/2019 11:33 AM EDT This has already been addressed and refused, not sure why I keep getting requests. * Telephone Encounter - Germán Zaragoza - 07/31/2019 1:45 PM EDT Patient would like script to be: E-PRESCRIBED/FAXED TO PHARMACY WHEN WAS THE PATIENT'S LAST APPOINTMENT IN ADULT MEDICINE? 07/01/2019 WHEN WAS THE LAST TIME THE PATIENT SAW THEIR PCP? Same as above Does patient have an upcoming appointment? (THE MEDICATION REQUESTED IS ON THE MED LIST ABOVE) All of the medications requested were on the CURRENT MEDS list Did you check the Pharmacy information above?: YES Patient wants: 30 -day supply Is this a mail order prescription request ? NO If the refill is from a FAXED refill request what is the RX # listed on the fax? N/A Patients current insurance carrier is: Payor: [employer] [facility] / Plan: CC-SUSAN SILVER TYPE 2 / Product Type: HMO [id number] documented in this encounter Plan of Treatment Not on file documented as of this encounter Visit Diagnoses Not on filedocumented in this encounter Care Teams Rewind Operator Relationship Specialty Start Date End Date Nicolette Fan DO PCP - General Internal Medicine 05/29/19 12/07/20 [facility], Pcp PCP - General Internal Medicine 12/08/20 documented as of this encounter
--- OUTSIDE RECORDS SUMMARY | 2024-06-25 17:26 | XMS_ITS | Encounter Summary ---
Author Organization [facility] Address [address] [place] [address] Care Team Providers Care Procedure Writer Name Role Phone Nicki Lovelace MD Primary Care Provider Unavailable Nicolette Fan DO Primary Care Pro vider Unavailable Community, Pcp Primary Care Provider Unavailabl e Encounter Details Date Type Department Care Team Description 02/27/2018 Audio Director Report Medical Records [address] [place] [address] Catalino Dobbs MD Social History Tobacco Use Types Packs/Day Years [...] on filedocumented in this encounter Care Teams Procedure Writer Relationship Specialty Start Date End Date Nicki Lovelace MD PCP - General 01/01/1998 Nicolette Fan DO PCP - General Internal Medicine 05/29/19 12/07/20 [facility], Pcp PCP - General Internal Medicine 12/08/20 documented as of this encounter
--- OUTSIDE RECORDS SUMMARY | 2024-06-25 17:26 | XMS_ITS | Encounter Summary ---
Author Organization [facility] Address [address] [place] [address] Care Team Providers Care Division Head Name Role Phone Nicolette Fan DO Primary Care Pro vider Unavailable [facility], Pcp Primary Care Provider Unavailabl e Reason for Visit * Reason Onset Date Comments Tree Puller Feedback 07/05/2019 unable to book a ppointment as notes are not complet Encounter Details Date Type Department Care Team Description 07/05/2019 Telephone Adult Medicine [address] [address] Nicolette Fan DO Tree Puller Feedback (unable to book appointment as notes are not complet ) Social History Tobacco Use Types Packs/Day Years Used Date Smoking Tobacco: Never Smokeless Tobacco: Never Alcohol Use Standard Drinks/Week Comments Yes 0 (1 standard drink = 0.6 oz pur e alcohol) social Sex Assigned at Date Recorded Not on file documented as of this encounter Miscellaneous Notes * Telephone Encounter - Nicolette Kimbrough DO - 07/08/2019 3:24 PM EDT Should be all set * Telephone Encounter - Leny Mercer - 07/05/2019 9:48 AM EDT FYI, On 07/01/19 you placed an order for this patient to see Urology , I am unable to schedule this appointment as your notes are not complete. Please let me know once this has been done so that I can thenwork on this patients order. Thank You, Leny Cummings [facility] Referrals Rep. Ext. [phone] documented in this encounter Plan of Treatment Not on file documented as of this encounter Visit Diagnoses Not on filedocumented in this encounter Care Teams Division Head Relationship Specialty Start Date End Date Nicolette Fan DO PCP - General Internal Medicine 05/29/19 12/07/20 [facility], Pcp PCP - General Internal Medicine 12/08/20 documented as of this encounter
--- OUTSIDE RECORDS SUMMARY | 2024-06-25 17:26 | XMS_ITS | Encounter Summary ---
Author Organization [facility] Address [address] [place] [address] Care Team Providers Care Advertising Sales Executive Name Role Phone [place]-Nicki Keyes MD Primary Care Provider Unavailable Nicolette Fan DO Primary Care Pro vider Unavailable [facility], Pcp Primary Care Provider Unavailabl e Reason for Visit * Reason Comments E-prescribe Rx Request Encounter Details Date Type Department Care Team Description 05/15/2017 Refill Adult Medicine - [place] [address] [place] [address] Ulises Phillips PA E-prescribe Rx Request Social History Tobacco Use Types Packs/Day Years Used Date Smoking Tobacco: Never Smokeless Tobacco: Never Alcohol Use Standard Drinks/Week Comments Yes 0 (1 standard drink = 0.6 oz pur e alcohol) social Sex Assigned at Date Recorded Not on file documented as of this encounter Miscellaneous Notes * Telephone Encounter - Alan Lao M.A. - 05/16/2017 11:35 AM EST Faxed to pharmacy * Telephone Encounter - Tess Hopson M.A. - 05/16/2017 10:16 AM EST Lab Results Component Value Date WBC 5.4 09/24/2014 HGB 12.5 09/24/2014 HCT 39.4 09/24/2014 MCV 92.5 09/24/2014 PLTCT 300 09/24/2014 Lab Results Component Value Date NA 141 09/24/2014 K 4.4 09/24/2014 CO2 25.8 09/24/2014 CL 103 09/24/2014 BUN 17 09/24/2014 CREAT 0.7 09/24/2014 GLU 104 09/24/2014 ALB 4.7 08/12/2010 SGOT 14 08/12/2010 SGPT 11 08/12/2010 TBILI 0.4 08/12/2010 ALKPHOS 42 08/12/2010 TP 7.4 08/12/2010 CA 9.3 09/24/2014 GFR > 60 09/24/2014 * Telephone Encounter - Margaret Almanzar - 05/16/2017 8:05 AM EST Patient would like script to be: E-PRESCRIBED/FAXED TO PHARMACY WHEN WAS THE PATIENT'S LAST APPOINTMENT IN ADULT MEDICINE? [id number] WHEN WAS THE LAST TIME THE PATIENT SAW THEIR PCP? Has not seen pcp Does patient have an upcoming appointment? Not in notes (THE MEDICATION REQUESTED IS ON THE MED LIST ABOVE) All of the medications requested were on the CURRENT MEDS list Did you check the Pharmacy information above?: YES Patient wants: 30 -day supply Is this a mail order prescription request ? NO Patients current insurance carrier is: Payor: [facility] MEDICAID / Plan: [facility] MEDICAID HMO $0 [place] / Product Type: HMO [id number] documented in this encounter Plan of Treatment Not on file documented as of this encounter Visit Diagnoses Not on filedocumented in this encounter Care Teams Advertising Sales Executive Relationship Specialty Start Date End Date [place]-Nicki Keyes MD PCP - General 01/01/1998 Nicolette Fan DO PCP - General Internal Medicine 05/29/19 12/07/20 [facility], Pcp PCP - General Internal Medicine 12/08/20 documented as of this encounter
--- OUTSIDE RECORDS SUMMARY | 2024-06-25 17:26 | XMS_ITS | Encounter Summary ---
Author Organization [facility] Address [address] [place] [address] Care Team Providers Care Solid Glass Rod Dowel Machine Operator Name Role Phone Nicki Lovelace MD Primary Care Provider Unavailable Nicolette Fan DO Primary Care Pro vider Unavailable Community, Pcp Primary Care Provider Unavailabl e Encounter Details Date Type Department Care Team Description 01/14/2011 Orders Only OBGYN - [place] [address] [place] [address] Francoise King, CNM [address] [place] [address] Social History Tobacco Use Types Packs/Day Years [...] on filedocumented in this encounter Care Teams Solid Glass Rod Dowel Machine Operator Relationship Specialty Start Date End Date Nicki Lovelace MD PCP - General 01/01/1998 Nicolette Fan DO PCP - General Internal Medicine 05/29/19 12/07/20 [facility], Pcp PCP - General Internal Medicine 12/08/20 documented as of this encounter
--- OUTSIDE RECORDS SUMMARY | 2024-06-25 17:26 | XMS_ITS | Encounter Summary ---
Author Organization [facility] Address [address] [place] [address] Care Team Providers Care Hris Manager Name Role Phone Nicolette Fan DO Primary Care Pro vider Unavailable Community, Pcp Primary Care Provider Unavailabl e Reason for Referral * EXTERNAL (Priority) - Authorized/Booked Specialty Diagnoses / Procedures Referred By Contact Referred To Contact Otolaryngology / EarNoseThroat Procedures REFERRAL TO EAR, NOSE & THROAT Nicolette Fan DO [address] [place] [address] [facility] [address] [place] [address] DR. MACKENZIE [address] [place] [id number] Referral ID Status Reason Start Date Expiration Date V isits Requested Visits Authorized SEE NOTE Authorized/B ooked 04/07/2020 07/12/2020 1 1 Encounter Details Date Type Department Care Team Description 04/07/2020 Orders Only Adult Medicine [address] [address] Nicolette Fan DO HTN (hypertension), benign (Primary Dx); Hypothyroidism, unspecified type; Anxiety Social History Tobacco Use Types Packs/Day Years [...] or suspected to have Coronavirus / COVID-19? Unable to assess 04/07/2020 7:54 AM EST documented as of this encounter Plan of Treatment Scheduled Orders Name Type Priority Associated Diagnoses Orde r Schedule TSH Lab Routine Hypothyroidism, unspecified type Expected: 04/07/2020, Expires: 04/07/2021 documented as of this encounter Visit Diagnoses Diagnosis HTN (hypertension), benign- Primary Essential hypertension, benign Hypothyroidism, unspecified type Anxiety Anxiety state, unspecified documented in this encounter Care Teams Hris Manager Relationship Specialty Start Date End Date Nicolette Fan DO PCP - General Internal Medicine 05/29/19 12/07/20 [facility], Pcp PCP - General Internal Medicine 12/08/20 documented as of this encounter
--- OUTSIDE RECORDS SUMMARY | 2024-06-25 17:26 | XMS_ITS | Encounter Summary ---
Author Organization [facility] Address [address] [place] [address] Care Team Providers Care Counter Former Name Role Phone [place]-Nicki Keyes MD Primary Care Provider Unavailable Nicolette Fan DO Primary Care Pro vider Unavailable Community, Pcp Primary Care Provider Unavailabl e Encounter Details Date Type Department Care Team Description 09/15/2004 Orders Only Adult Medicine - [place] [address] [place] [address] Javi Hancock MD URINARY TRACT INFECTION, SITE NOT SPECIFIED (Primary Dx) Social History Tobacco Use Types Packs/Day Years Used Date Smoking Tobacco: Never Assessed Sex Assigned at Date Recorded Not on file documented as of this encounter Plan of Treatment Not on file documented as of this encounter Procedures Procedure Name Priority Date/Time Associated Diagnosis Comments URINE, CULTURE Routine 09/15/2004 2:10 PM EDT Urinary Tract Infection, Site Not Specified documented in this encounter Results * URINE, CULTURE (09/15/2004 2:10 PM EDT) URINE CULTURE <10,000 CFU/mL GRAM POSITIVE COCCI [facility] URINE CULTURE LACTOBACILLUS SPECIES COLONY COUNT 10,000-49,000 [facility] 09/15/2004 2:10 PM EDT 09/15/2004 2:16 PM EDT Javi Hancock MD LAB [facility] documented in this encounter Visit Diagnoses Diagnosis Urinary tract infection, site not specified- Primary documented in this encounter Care Teams Counter Former Relationship Specialty Start Date End Date [place]-Nicki Keyes MD PCP - General 01/01/1998 Nicolette Fan DO PCP - General Internal Medicine 05/29/19 12/07/20 [facility], Pcp PCP - General Internal Medicine 12/08/20 documented as of this encounter
--- OUTSIDE RECORDS SUMMARY | 2024-06-25 17:26 | XMS_ITS | Encounter Summary ---
Author Organization [facility] Address [address] [place] [address] Care Team Providers Care Regulatory Analyst Name Role Phone Nicki Lovelace MD Primary Care Provider Unavailable Nicolette Fan DO Primary Care Pro vider Unavailable Community, Pcp Primary Care Provider Unavailabl e Encounter Details Date Type Department Care Team Description 02/19/2018 Felt Checker Report Medical Records [address] [place] [address] Philippe Potter MD Social History Tobacco Use Types Packs/Day [...] on filedocumented in this encounter Care Teams Regulatory Analyst Relationship Specialty Start Date End Date Nicki Lovelace MD PCP - General 01/01/1998 Nicolette Fan DO PCP - General Internal Medicine 05/29/19 12/07/20 [facility], Pcp PCP - General Internal Medicine 12/08/20 documented as of this encounter
--- OUTSIDE RECORDS SUMMARY | 2024-06-25 17:26 | XMS_ITS | Encounter Summary ---
Author Organization [facility] Address [address] [place] [address] Care Team Providers Care Jet Pilot Name Role Phone Nicki Lovelace MD Primary Care Provider Unavailable Nicolette Fan DO Primary Care Pro vider Unavailable Community, Pcp Primary Care Provider Unavailabl e Encounter Details Date Type Department Care Team Description 12/13/2010 Typesetters Printer Report Medical Records [address] [place] [address] Cosmo Mott Social History Tobacco Use Types [...] on filedocumented in this encounter Care Teams Jet Pilot Relationship Specialty Start Date End Date Nicki Lovelace MD PCP - General 01/01/1998 Nicolette Fan DO PCP - General Internal Medicine 05/29/19 12/07/20 [facility], Pcp PCP - General Internal Medicine 12/08/20 documented as of this encounter
== END 2024-06-25 14:36 | disposition home or self-care (01) ==
LOC: HO.MAMMO 14:35
PROVIDERS: PCP Internal Medicine; Visit Provider Internal Medicine
DX: Z12.31 Encounter for screening mammogram for malignant neoplasm of breast (principal)
CPT/HCPCS: 77063; 77067

== ENCOUNTER → 2024-06-25 14:45 | Outpatient (BNV) | payer OTHER, SELFPAY | PROVIDERS: PCP Internal Medicine; Visit Provider Internal Medicine | DX: Z12.31 Encounter for screening mammogram for malignant neoplasm of breast (principal) | CPT/HCPCS: 77063; 77067 ==